=== PATIENT | male | born 1960 | race African-American/Black ===

== ENCOUNTER 2023-09-06 05:32 | Inpatient (IN) | payer MEDICAID ==
[2023-09-06] VITALS (54 sets, daily range): BP systolic 105–152; BP diastolic 47–108; PULSE 50–97; RESP 8–25; TEMP 97.6–98.3
[~2023-09-06] VITALS: Ht 180.3 cm; Wt 86.2 kg
[~2023-09-06 05:32] MED LIST: ACET-2708 PO; AMLO5TAB88 PO; CYCL10TA21 PO; IBUP-1653 MT; NAPR220T66 PO
[2023-09-06] MEDS ORDERED: LIDOCAINE HCL/EPINEPHRINE 1%-EPI 1:100,000 20 ML VIAL ONE (06:51)
[2023-09-06] MEDS ORDERED: THROMBIN (BOVINE) 5000 UNITS/VIAL TOP ONE ×2 (06:51)
[2023-09-06] MEDS ORDERED: GENTAMICIN SULF 40MG/ML 2ML VIAL ONE (06:51)
[2023-09-06] MEDS ORDERED: BACITRACIN 14GM TUBE TOP ONE (06:51)
[2023-09-06] MEDS: LACTATED RINGERS 1,000 ML IV SCH (08:19)
[2023-09-06] MEDS ORDERED: PROPOFOL 200MG/20ML VIAL IV ONE (11:39)
[2023-09-06] MEDS ORDERED: CEFAZOLIN SODIUM 1000MG/VIAL ONE (11:39)
[2023-09-06] MEDS ORDERED: FENTANYL CITRATE/PF 50MCG/ML 2ML VIAL ONE (11:39)
[2023-09-06] MEDS ORDERED: SUCCINYLCHOLINE CHLORIDE 200MG/10ML IV ONE (11:39)
[2023-09-06] MEDS ORDERED: MIDAZOLAM HCL 2 MG/2 ML VIAL ONE (11:40)
[2023-09-06] MEDS ORDERED: LIDOCAINE HCL 1% 10 MG/ML 10ML VIAL ONE (11:45)
[2023-09-06] MEDS ORDERED: ROCURONIUM BROMIDE 10MG/ML VIAL 5ML IV ONE (11:46)
[2023-09-06] MEDS ORDERED: ONDANSETRON HCL 4MG/2ML INJ ONE (11:46)
[2023-09-06] MEDS ORDERED: DEXAMETHASONE 4MG/ML 1ML VIAL ONE (11:46)
[2023-09-06] MEDS ORDERED: GLYCOPYRROLATE 0.2 MG/ML 2ML VIAL ONE ×2 (12:30)
[2023-09-06] MEDS ORDERED: HYDROMORPHONE HCL/PF 2MG/ML CPJ ONE (12:33)
[2023-09-06] MEDS: MORPHINE SULFATE 4 MG/ML INJ (FOR IV/IM USE) IV PRN (13:56)
[2023-09-06] MEDS ORDERED: CEFAZOLIN SODIUM 1000MG/VIAL IV SCH (14:00)
[2023-09-06] MEDS: DEXT 5%/LACTATED RINGERS 1,000 ML IV SCH (14:06)
[2023-09-06] MEDS ORDERED: NALOXONE HCL 0.4MG/ML VIAL IV PRN (14:30)
[2023-09-06] MEDS: PANTOPRAZOLE SODIUM 40 MG/VIAL IV NR (16:06)
[2023-09-06] MEDS: DEXAMETHASONE 4MG/ML 1ML VIAL IV SCH (18:16)
[2023-09-06] MEDS: NICARDIPINE 100 MG in SODIUM CHLORIDE 0.9% 60 ML IV PRN (18:17)
[2023-09-06 18:31] LABS: CLARITY URINE CLEAR (CLEAR); COLOR URINE YELLOW (YELLOW); GLUCOSE URINE 2+ (NEGATIVE); KETONES URINE NEGATIVE (NEGATIVE); LEUKOCYTE ESTERASE URINE NEGATIVE (NEGATIVE); NITRITE URINE NEGATIVE (NEGATIVE); OCCULT BLOOD URINE NEGATIVE (NEGATIVE); PROTEIN URINE 1+ (NEGATIVE); SPECIFIC GRAVITY URINE 1.019 (1.005-1.030); UROBILINOGEN URINE 0.2 E.U./dL (0.2-1.0)
[2023-09-06 18:41] LABS: *AMPHETAMINES SCREEN URINE NEGATIVE (NEGATIVE)
[2023-09-06 18:42] LABS: *BARBITURATES SCREEN URINE NEGATIVE (NEGATIVE); *BENZODIAZEPINES SCREEN URINE PRESUMPTIVE POSITIVE (NEGATIVE); *COCAINE SCREEN URINE NEGATIVE (NEGATIVE); CANNABINOID URINE SCREEN PRESUMPTIVE POSITIVE (NEGATIVE); ECSTASY MDMA SCREEN URINE NEGATIVE (NEGATIVE); METHADONE URINE SCREEN NEGATIVE (NEGATIVE); OPIATES URINE SCREEN PRESUMPTIVE POSITIVE (NEGATIVE); PHENCYCLIDINE URINE SCREEN NEGATIVE (NEGATIVE)
[2023-09-06 20:23] LABS: BACTERIA URINE 1+; RBC URINE 0-2 /hpf (0-2); SQUAMOUS EPITHELIAL CELL URINE FEW /lpf (RARE/1+); WBC URINE 0-2 /hpf (0-2)
[2023-09-06] MEDS: CEFAZOLIN 1000MG PREMIX 50ML IV SCH (21:20)
[2023-09-06] MEDS ORDERED: IPRATROPIUM/ALBUTEROL 0.5-3(2.5)MG/3ML NEB HHN PRN (21:30)
[2023-09-07] VITALS (83 sets, daily range): BP systolic 111–174; BP diastolic 63–144; PULSE 62–109; RESP 5–25; TEMP 98
[2023-09-07] MEDS: HYDROCODONE/ACETAMINOPHEN 7.5/325MG TABLET PO PRN (01:04)
[2023-09-07 05:36] LABS: HEMATOCRIT. 41.5 % (42.0-52.0); MEAN CORPUSCULAR HGB CONC 33.8 g/dL (31.0-37.0); MEAN CORPUSCULAR VOLUME 88.9 fL (80.0-94.0); MEAN PLATELET VOLUME 8.8 fl (7.4-10.4); PLATELET 344 x1000/uL (130-400); RED BLOOD CELL COUNT 4.67 mill/uL (4.7-6.1); RED CELL DISTRIBUTION WIDTH 16.1 % (11.6-14.6); WHITE BLOOD COUNT 16.2 x1000/uL (4.5-11.0)
[2023-09-07 05:38] LABS: CALCIUM 8.7 mg/dL (8.7-10.4); CHLORIDE 105 mEq/L (98-107); POTASSIUM 4.4 mEq/L (3.5-5.1); SODIUM 134 mEq/L (136-145)
[2023-09-07 05:39] LABS: CARBON DIOXIDE 22 mEq/L (21-32)
[2023-09-07 05:44] LABS: CREATININE 1.2 mg/dL (0.6-1.3); GLUCOSE 174 mg/dL (70-105); UREA NITROGEN BLOOD 16 mg/dL (9-23)
[2023-09-07 05:46] LABS: DIFFERENTIAL COMMENT 1
[2023-09-07 06:05] LABS: HEPATITIS B SURFACE ANTIGEN NEGATIVE (Negative)
[2023-09-07 06:19] LABS: ATYPICAL LYMPHOCYTES 1; OVALOCYTES 1+; PLATELET ESTIMATE NORMAL; TEAR DROP CELLS 2+
[2023-09-07] MEDS: HYDROMORPHONE HCL/PF 2MG/ML CPJ IV PRN (06:19)
[2023-09-07 06:26] LABS: HEPATITIS C AB NON REACTIVE (Neg) (Negative)
[2023-09-07 06:33] LABS: INR 0.9; PARTIAL THROMBOPLASTIN TIME 26.1 sec (23.4-31.0); PROTHROMBIN TIME 10.4 sec (9.6-11.0)
[2023-09-07] MEDS: PANTOPRAZOLE SODIUM 40 MG/VIAL IV SCH (08:44)
[2023-09-07] MEDS: DIAZEPAM 5 MG TABLET PO NR (12:03)
[2023-09-07] MEDS: AMLODIPINE 10MG TABLET PO SCH (13:42)
[2023-09-07] MEDS: HYDRALAZINE HCL 25MG TABLET PO SCH (13:43)
[2023-09-07] MEDS: CLONIDINE 0.1MG TABLET PO PRN (17:35)
[2023-09-08] VITALS (40 sets, daily range): BP systolic 112–155; BP diastolic 77–99; PULSE 54–104; RESP 10–21; TEMP 98–98.2
[2023-09-08] MEDS: DIAZEPAM 5 MG TABLET PO NR (09:27)
[2023-09-08 13:04] LABS: BG BASE EXCESS 2.2 mmol/L (-2.0-2.0); BG CARBOXYHEMOGLOBIN 0.8 % (0.5-1.5); BG DEOXYHEMOGLOBIN 11.7 % (0.0-5.0); BG FRACTION INSPIRED OXYGEN 21; BG METHEMOGLOBIN 0.2 % (0.0-1.5); BG OXYGEN SATURATION 88.2 % (92.0-98.5); BG OXYHEMOGLOBIN 87.3 % (94.0-97.0); BG PCO2 37.5 mmHg (35.0-45.0); BG PH 7.458 (7.350-7.450); BG PO2 53.9 mmHg (75.0-100.0); BG SAMPLE SITE RIGHT RADIAL; BG TOTAL HEMOGLOBIN 13.6 g/dL (12.0-18.0); BG VENT MODE ROOM AIR
[2023-09-08] MEDS: LOSARTAN 25 MG TABLET PO SCH (14:49)
[2023-09-09] VITALS (48 sets, daily range): BP systolic 103–142; BP diastolic 77–115; PULSE 52–106; RESP 9–22; TEMP 97.5–98.6
[2023-09-09] MEDS: HYDRALAZINE HCL 50MG TABLET PO SCH (13:42)
[2023-09-09] MEDS: DIAZEPAM 5 MG TABLET PO NR (21:56)
[2023-09-10] VITALS: BP 148/89; PULSE 102; RESP 20; TEMP 98
[2023-09-10] MEDS: OXYCODONE HCL 5MG TABLET PO PRN (02:24)
[2023-09-10 04:00] VITALS: BP 143/92; PULSE 90; RESP 18; TEMP 97.8
[2023-09-10 07:41] LABS: BASOPHILS % 0.1 % (0.0-2.0); DIFFERENTIAL COMMENT 0; EOSINOPHILS % 0.5 % (0.0-5.0); HEMATOCRIT. 40.9 % (42.0-52.0); LYMPHOCYTES % 17.3 % (20.0-50.0); MEAN CORPUSCULAR HEMOGLOBIN 30.2 pg (28.0-32.0); MEAN CORPUSCULAR HGB CONC 34.2 g/dL (31.0-37.0); MEAN CORPUSCULAR VOLUME 88.2 fL (80.0-94.0); MEAN PLATELET VOLUME 8.8 fl (7.4-10.4); MONOCYTES % 11.5 % (2.0-8.0); NEUTROPHILS % 70.6 % (40.0-76.0); PLATELET 309 x1000/uL (130-400); RED BLOOD CELL COUNT 4.64 mill/uL (4.7-6.1); RED CELL DISTRIBUTION WIDTH 16.1 % (11.6-14.6); WHITE BLOOD COUNT 10.6 x1000/uL (4.5-11.0)
[2023-09-10 08:00] VITALS: BP 149/89; PULSE 91; RESP 20; TEMP 99.1
[2023-09-10 08:12] LABS: CARBON DIOXIDE 25 mEq/L (21-32); CHLORIDE 104 mEq/L (98-107); POTASSIUM 3.7 mEq/L (3.5-5.1); SODIUM 138 mEq/L (136-145)
[2023-09-10 08:17] LABS: CALCIUM 8.8 mg/dL (8.7-10.4); CREATININE 1.2 mg/dL (0.6-1.3)
[2023-09-10 08:18] LABS: GLUCOSE 84 mg/dL (70-105); UREA NITROGEN BLOOD 21 mg/dL (9-23)
[2023-09-10 12:00] VITALS: BP 157/88; PULSE 103; RESP 20; TEMP 98.5
[2023-09-10 16:00] VITALS: BP 144/96; PULSE 106; RESP 20; TEMP 99.1
[2023-09-10 20:00] VITALS: BP 142/95; PULSE 107; RESP 18; TEMP 99.7
[2023-09-11] VITALS: BP 103/58; PULSE 91; RESP 18; TEMP 101.7
[2023-09-11 04:00] VITALS: BP 155/89; PULSE 100; RESP 18; TEMP 98.7
[2023-09-11 08:00] VITALS: BP 133/85; PULSE 89; RESP 19; TEMP 101.3
[2023-09-11] MEDS: FAMOTIDINE 20MG/2ML VIAL IV SCH (09:00)
[2023-09-11 12:00] VITALS: BP 133/85; PULSE 87; RESP 18; TEMP 102
[2023-09-11] MEDS: ACETAMINOPHEN 325MG TABLET PO PRN (13:21)
[2023-09-11 16:00] VITALS: BP 126/74; PULSE 87; RESP 19; TEMP 98.9
[2023-09-11] MEDS ORDERED: HYDR50TA39 PO (17:03)
[2023-09-11] MEDS ORDERED: AMLO10TA80 PO (17:03)
[2023-09-11] MEDS ORDERED: LOSA25TA26 PO (17:03)
[2023-09-11] MEDS ORDERED: NICO-645 TP (17:03)
[2023-09-11 17:13] VITALS: BP 133/85; PULSE 81; TEMP 102; O2SAT 97
[2023-09-12] MEDS ORDERED: NICOTINE 21MG PATCH TD SCH (09:00)
== END 2023-09-11 18:25 | disposition home or self-care (01) | DRG 321 ==
LOC: OR 05:32 → MICUNO 14:10 → 6EST 09-09 15:12
PROVIDERS: ADMIT Internal Medicine; ATTEND Neurological Surgery
PROC: 0RG2071 Fusion of 2 or more Cervical Vertebral Joints with Autologous Tissue Substitute, Posterior Approach, Posterior Column, Open Approach (ICD-10-PCS; principal; 2023-09-06)
PROC: 00NW0ZZ Release Cervical Spinal Cord, Open Approach (ICD-10-PCS; 2023-09-06)
PROC: 0QB00ZZ Excision of Lumbar Vertebra, Open Approach (ICD-10-PCS; 2023-09-06)
DX: M48.02 Spinal stenosis, cervical region (principal); J96.01 Acute respiratory failure with hypoxia; G82.50 Quadriplegia, unspecified; G99.2 Myelopathy in diseases classified elsewhere; F12.90 Cannabis use, unspecified, uncomplicated; M54.12 Radiculopathy, cervical region; F17.210 Nicotine dependence, cigarettes, uncomplicated; Z90.5 Acquired absence of kidney; Z82.49 Family history of ischemic heart disease and other diseases of the circulatory system; G95.29 Other cord compression
CPT/HCPCS: 36415; 36600; 71045; 72040; 72141; 76000; 80048; 80305; 81003; 82375; 82805; 85025; 86705; 86850; 86900; 87340; 88304; 88311; 93970; 95925; 95926; 95928; 95929; 97116; 97162; C9113; J0330; J0690; J1100; J1170; J1580; J2250; J2270; J2405; J2704; J3010; J3490; J7040; J7050; J7120; J7121; L0172; A5200; C1713